=== PATIENT | male | born 1945 | race Caucasian/White ===

== ENCOUNTER 2024-10-17 20:49 | Emergency (ER) | payer OTHER, MEDICARE ==
[~2024-10-17] VITALS: Ht 175.3 cm; Wt 75.0 kg
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
--- NOTE | 2024-10-17 23:56 | DVH ---
Procedure: CT CHEST WITHOUT CONTRAST Reason for study/Clinical History: trauma Comparison Study: None available at time of dictation. Exam Date: 10/17/2024 11:27 PM TECHNIQUE: Multidetector CT of the chest was performed from the lung apices to the upper abdomen with out the use of intravenous contract. Axial, coronal and sagittal multiplanar reformats were performed . Radiation Dose Information: CT Dose: CTDI volume is 11.2 mGy. Dose-length product is 410.56 mGy*cm The dose indicators for CT are the volume Computed Tomography (CT) Dose Index (CTDIvol) and the Dose Length Product (DLP), and are measured in units of mGy and mGy-cm, respectively. These indicators are not patient dose, but values generated from the CT scanner acquisition factors. The report includes radiation exposure data for exposures received during this examination. FINDINGS: Lower neck: Normal thyroid. Lungs: No focal consolidation, pleural effusion or pneumothorax. Heart/Vascular Structures: Normal heart size. No pericardial effusion. Lymph Nodes: No adenopathy Pleura: No pleural effusion or significant pneumothorax. Musculoskeletal: No acute osseous abnormality. Soft tissues: Sternal wires in place. Upper abdomen: Limited portions of the upper abdomen are unremarkable. IMPRESSION: 1. No acute intrathoracic abnormality. Radiation optimization: All CT scans at this facility use at least one of these dose optimization david hniques: automated exposure control mA and/or kV adjustment per patient size (includes targeted exam s where dose is matched to clinical indication) or iterative reconstruction.
[2024-10-18] MEDS ORDERED: HYDR1TAB97 PO (01:08)
[2024-10-18] MEDS ORDERED: IBUP200C14 PO (01:08)
[2024-10-18 02:09] VITALS: BP 148/80; PULSE 79; RESP 19; TEMP 98.4; O2SAT 98
[2024-10-18] MEDS: KETOROLAC TROMETH 30 MG/ML 1ML VIAL IV ONE (02:16)
[2024-10-18] MEDS: cloNIDine HCL 0.1 MG TAB PO ONE (02:16)
--- NOTE | 2024-10-18 07:19 | ECG ---
[facility] Test Date: 2024-10-17 Test Time: 20:57:36 Pat Name: KALIA DELA CRUZ Department: ED Room: Gender: M Maintenance Plumber: LONG : 1945 Requested By: EMERGENCY EMERGENCY Order Number: [id number] Reading MD: Leo Griffin Measurements Intervals [place] Rate: 84 P: 36 [place]: 189 QRS: -75 QRSD: 156 T: 81 QT: 404 QTc: 478 Interpretive Statements Sinus rhythm RBBB and LAFB Probable left ventricular hypertrophy Inferior infarct, acute (RCA) Lateral leads are also involved Probable RV involvement, suggest recording right precordial leads Electronically Signed On 10-18-2024 18:28:18 PST by Leo Griffin Please click the below link to view image of tracing.
== END 2024-10-18 02:26 | disposition home or self-care (01) ==
LOC: EDBD 20:49 → ER 20:49
DX: S29.9XXA Unspecified injury of thorax, initial encounter (principal); I10 Essential (primary) hypertension; Z98.890 Other specified postprocedural states; X58.XXXA Exposure to other specified factors, initial encounter; Y93.89 Activity, other specified; Y92.89 Other specified places as the place of occurrence of the external cause; Y99.8 Other external cause status
CPT/HCPCS: 71250; 93005